=== PATIENT | male | born 1975 | race American Indian/Alaskan Native ===

== ENCOUNTER 2017-10-15 06:36 | Emergency (ER) | payer OTHER ==
[2017-10-15 06:46] VITALS: BP 153/107
[2017-10-15] MEDS ORDERED: XYLOCAINE 1%/ EPI 1:100,000 INFILTRATI ONE (07:11)
[2017-10-15] MEDS ORDERED: NACL 0.9% 500 ML IR ONE (07:12)
[2017-10-15] MEDS ORDERED: NACL 0.9% IR ONE (07:15)
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
[2017-10-15] MEDS ORDERED: BOOSTRIX IM ONE (07:22)
[2017-10-15] MEDS ORDERED: TYLENOL PO ONE (07:22)
[2017-10-15] MEDS ORDERED: BETADINE TP SCH (08:00)
[2017-10-15] MEDS ORDERED: XYLOCAINE 1%/ EPI 1:100,000 INFILTRATI NR (08:00)
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
== END 2017-10-15 08:52 ==
LOC: ED 06:36
DX: M25.512 Pain in left shoulder (principal); R51 Headache; M54.89 Other dorsalgia; Y04.2XXA Assault by strike against or bumped into by another person, initial encounter; Y93.89 Activity, other specified; Y99.8 Other external cause status; Y92.89 Other specified places as the place of occurrence of the external cause
CPT/HCPCS: 70450; 71046; 90471; 90715